=== PATIENT | male | born 1975 | race Caucasian/White ===

== ENCOUNTER → 2020-03-30 | Outpatient (CLI) | payer OTHER ==
--- NOTE | 2020-05-22 10:09 | REP ---
CHEST X-RAY: 2-VIEWS HISTORY: Dyspnea. COMPARISON: Chest x-ray from 07/17/11. FINDINGS: The lungs are well-inflated and clear. The pleural angles are sharp. The heart size is normal. No significant bony abnormality is seen. There is a stable granulomatous calcification projecting in the retrosternal clear space on lateral radiograph, unchanged from 07/17/11 prior radiographs. This is a granulomatous lymph node calcification. IMPRESSION: No active disease. MTDD
== END ==
LOC: M RAD 15:50
PROVIDERS: ATTEND Physician Assistant
DX: R06.00 Dyspnea, unspecified (principal)

== ENCOUNTER → 2020-06-05 | Outpatient (CLI) | payer OTHER ==
[~2020-06-05] MED LIST: METHACHOLINE KIT (J7674) INH ONE
--- NOTE | 2020-06-05 11:15 | PFTRPT ---
Height: 70.00 Inches Weight: 185.00 Lbs BSA: 2.02 Diagnosis: R06.00 DATE: 06/05/2020 ORDERED BY: Yoseph Carney QUALITY: Study of excellent technical quality. PROCEDURE: Under protocol, methacholine was administered. A dose of 0.25 mg or 1.375 CDUs, a 26% decline of the FEV1 was noted. PC of 0.08 is significant. Flow rates did return to baseline post-bronchodilator administration. IMPRESSION: Positive methacholine challenge study. MTDD
== END ==
LOC: M CARPUL 10:27
PROVIDERS: ATTEND Physician Assistant
DX: R06.00 Dyspnea, unspecified (principal)
CPT/HCPCS: 94070; 95070; J7674

== ENCOUNTER → 2021-06-04 | Outpatient (REF) ==
--- NOTE | 2021-06-04 15:28 | REP ---
INDICATION: PAIN COMPARISON: None. TECHNIQUE: AP, lateral, coned-down views of the lumbar spine. FINDINGS: The lumbar spine demonstrates normal alignment and lordosis with no significant degenerative changes noted. There is mild compression at T12 with complete loss of the T11-12 disc space and bridging anterior osteophyte suggesting old trauma. IMPRESSION: 1. Lumbar spine appears essentially age-appropriate. 2. Findings involving T11/T12 suggesting prior injury with mild compression deformity. <Electronically signed by Jim Handy > 06/04/21 [id number]
== END ==
LOC: M PLAIMG 14:31
PROVIDERS: ATTEND Internal Medicine
DX: R52 Pain, unspecified (principal)

== ENCOUNTER → 2023-04-02 | Outpatient (REF) | payer OTHER | LOC: M SFHCDERM 10:18 | PROVIDERS: ATTEND Nurse Practitioner Family | DX: L40.9 Psoriasis, unspecified (principal); Z53.9 Procedure and treatment not carried out, unspecified reason ==

== ENCOUNTER → 2023-04-02 | Outpatient (CLI) | payer OTHER ==
[2023-04-02 11:23] LABS: BASO % 0.3 % (0.0-1.0); EOS % 0.3 % (0.0-3.0); HEMATOCRIT 45.8 % (42.0-52.0); HEMOGLOBIN 15.4 g/dl (13.5-17.5); LYMPH # 1.4 10^3/uL (1.5-5.0); LYMPH % 18.7 % (24.0-44.0); MEAN CORPUSCULAR HEMOGLOBIN 33.8 pg (27.0-33.0); MEAN CORPUSCULAR HGB CONC 33.6 g/dl (32.0-36.5); MEAN CORPUSCULAR VOLUME 100.4 fl (80.0-96.0); MONO # 0.6 10^3/uL (0.0-0.8); MONO % 8.2 % (2.0-8.0); NEUTROPHILS # 5.3 10^3/uL (1.5-8.5); PLATELET COUNT, AUTOMATED 240 10^3/uL (150-450); RED BLOOD COUNT 4.56 10^6/uL (4.30-6.10); WHITE BLOOD COUNT 7.3 10^3/uL (4.0-10.0)
[2023-04-02 11:53] LABS: ALBUMIN 3.7 G/DL (3.2-5.2); ALKALINE PHOSPHATASE 110 U/L (46-116); ALT/SGPT 105 U/L (7.0-40); AST/SGOT 71 U/L (<34); BILIRUBIN,TOTAL 0.4 MG/DL (0.3-1.2); BLOOD UREA NITROGEN 11 MG/DL (9-23); CALCIUM LEVEL 8.5 MG/DL (8.5-10.1); CARBON DIOXIDE LEVEL 22 MMOL/L (20-31); CHLORIDE LEVEL 104 MMOL/L (98-107); CREATININE FOR GFR 0.61 MG/DL (0.70-1.30); GLOMERULAR FILTRATION RATE > 60.0 (>60); GLUCOSE, FASTING 98 MG/DL (60-100); POTASSIUM SERUM 4.3 MMOL/L (3.5-5.1); SODIUM LEVEL 136 MMOL/L (136-145); TOTAL PROTEIN 7.1 G/DL (5.7-8.2)
[2023-04-02 12:27] LABS: HIV 1&2 SCREEN NEGATIVE (NEGATIVE)
[2023-04-02 12:35] LABS: HEPATITIS B CORE ANTIBODY IGM NEGATIVE (NEGATIVE); HEPATITIS C VIRUS ABY INDEX 0.12 INDEX (<0.8)
== END ==
LOC: M LAB 10:47
PROVIDERS: ATTEND Nurse Practitioner Family
DX: L40.9 Psoriasis, unspecified (principal)